=== PATIENT | female | born 1995 | race Caucasian/White ===

== ENCOUNTER 2017-01-18 09:00 | Day surgery (SDC) | payer OTHER ==
[~2017-01-18] VITALS: Ht 166.4 cm; Wt 65.5 kg
[2017-01-18] MEDS: Lactated Ringer's 1,000 ML IV SCH ×2 (03:45→09:00)
--- NOTE | 2017-01-18 06:43 | PCM.HPANE ---
Patient Data Surgeon Admitting Provider: Attending Provider:Yeimy Nunez MD Primary Care Physician:Josemanuel Other Provider:Valentina Escobar Anesthesia Reason for Visit Hymen Abnormal Ht/WT & BMI Height (Feet): 5 Height (Inches): 4 Body Mass Index 0.00 Allergies Coded Allergies: No Known Allergies (Unverified , 01/15/17) Past Anesthesia History Anesthesia History: Denies:: Fam Anesthesia Reaction, Fam Malignant Hypertherm Diabetes History Hx Diabetes?: No MRSA MRSA: No Medications No Active Prescriptions or Reported Meds History History of ENT Problems?: Yes Other HEENT Pertinent History: S/P WISDOM TEETH EXTRACTIONS Hx of Heart Problems?: No Cardiovascular History: Denies:: Heart Murmur Hypertension Valvular Heart Disease Hx of Respiratory Problem?: No Respiratory History: Denies:: Use of C-PAP Machine Hx Neurologic Problems?: No Hx of GI Problems?: No Hx of Problems?: No Female Hx: Denies:: Currently Skin History: Denies:: History Skin Disorders? Pressure Ulcers Hx Musculoskeletal Problems?: No Hx of Psycho/Social Problems?: No Hx Surgeries?: No Hx Any Other Health Problems?: No Other History: Denies:: Cancer Endocrine Disease Hospitalization Thyroid Disease History Blood Transfusions: Positive for:: Accept Blood Products? Denies:: Blood Transfusions Hx Diabetes: No Have You Smoked inLast 12 mo: No Stop/Bang S-Snoring: Do You Snore Loudly: No T-Tired: feel tired, fatigued: No O-Obsered: Observed not breath: No P-Blood Pressure: treated: No B- Body Mass Index > 35 kg/m2: No A- Age over 50: No N- Neck Large Circumference: No G- Gender Male: No RALF Total Score: 0 RALF Risk Assessment: Low Risk, <3 Yes Risk Assessment Category Category 1A: Patient has history of documented sleep apnea, and HAS NOT received any narcotic, sedative or anesthesia administration during this stay. Category 1B: Patient has history of documented sleep apnea, and HAS received any narcotic , sedative or anesthesia administration during this stay Category 2: Patient has SUSPECTED Obstructive Sleep Apnea, and HAS received any narcotic , sedative or anesthesia administration during this stay. Category 3: Patient has SUSPECTED Obstructive Sleep Apnea and HAS NOT received narcotic, sedative or anesthesia administration during this stay. Category 4: Outpatient in Procedural Areas with known sleep apnea or who screen positive for High Risk via the STOP/BANG questionnaire. Exam Exam General Appearance: Alert, Oriented X3, Cooperative, No Acute Distress HEENT/AIRWAY: MP 2 Lungs: Clear to Auscultation, Normal Air Movement Heart: Exam Unremarkable, Regular Rate/Rhythm, No Murmurs/Rubs/Gallops Plan Impression Patient chart reviewed, patient interviewed and anesthestic plan with risks, benefits, and alternatives discussed, and informed consent obtained. ASA Physical Status: ASA1 Normal Healthy Anesthetic Plan: GA Bene/Risks/Altern/Consents: Yes HP Complete Prior to Induction: Yes Leonel Salamanca MD Jan 18, 2017 06:43
[2017-01-18] MEDS ORDERED: fentaNYL-PF 50 mCg/mL 2 mL Inj ONE (09:01)
[2017-01-18] MEDS ORDERED: Propofol 10,000 mCg/mL 20 mL Inj ONE (09:01)
[2017-01-18] MEDS ORDERED: Dexamethasone 4 mg/mL Inj ONE (09:01)
[2017-01-18] MEDS ORDERED: Ondansetron 2 mg/mL 2 mL Inj ONE (09:01)
[2017-01-18 09:23] VITALS: BP 127/63; PULSE 107; RESP 18; O2SAT 100
[2017-01-18] MEDS ORDERED: Labetalol 5 mg/mL 4 mL Inj IV PRN (14:05)
[2017-01-18] MEDS ORDERED: Dexamethasone 4 mg/mL Inj IVPUSH PRN (14:05)
[2017-01-18] MEDS ORDERED: Phenylephrine 10,000 mCg/mL Inj IVPUSH PRN (14:05)
[2017-01-18] MEDS ORDERED: fentaNYL-PF 50 mCg/mL 2 mL Inj IVPUSH PRN (14:05)
[2017-01-18] MEDS ORDERED: HYDROmorphone 1 mg/mL Inj IVPUSH PRN (14:05)
[2017-01-18] MEDS ORDERED: Ondansetron 2 mg/mL 2 mL Inj IVPUSH PRN ×2 (14:05→14:40)
[2017-01-18] MEDS ORDERED: Lactated Ringer's 1,000 ML IV SCH (14:05)
[2017-01-18] MEDS ORDERED: EPHEDrine Sulfate 50 mg/mL Inj IVPUSH PRN (14:05)
[2017-01-18] MEDS ORDERED: Atropine 0.4 mg/mL Inj IVPUSH PRN (14:05)
[2017-01-18] MEDS ORDERED: MetoCLOpramide 5 mg/mL 2 mL Inj IVPUSH PRN ×2 (14:05→14:40)
[2017-01-18] MEDS ORDERED: Lactated Ringer's 500 ML IV PRN (14:05)
[2017-01-18] MEDS ORDERED: Lidocaine 1%-Epi 1:100,000 20 mL Inj INJ ONE (14:21)
[2017-01-18 14:40] VITALS: BP 104/63; PULSE 84; RESP 16; O2SAT 100
[2017-01-18] MEDS ORDERED: diphenhydrAMINE 25 mg Capsule PO PRN (14:40)
[2017-01-18] MEDS ORDERED: oxyCODONE-Acetamin 5-325 mg Tablet PO PRN (14:40)
[2017-01-18 14:45] VITALS: BP 103/63; PULSE 83; RESP 17; O2SAT 100
--- NOTE | 2017-01-18 14:45 | PCM.DIGYN ---
Surgical Discharge Instruction Dates of Hospitalization Date of Hospital Admission Providers Admitting Physician: Primary Care Physician: Josemanuel Attending Physician: Yeimy Nunez MD Diagnosis at Time of Discharge Diagnosis at time of discharge Imperforate hymen Problems: Diet Discharge Diet: No restrictions Activity Discharge Activity-General: Try not to overdue, Activity as pain allows, No driving while taking narcotic Dressing and Incisional Care Hygiene: May shower, NO bathtub, hot tub or whirlpool Additional Instructions Discharge Instructions Please call with any signs or symptoms of infection, severe pain, temperature greater than 100.5 degrees or malodorous vaginal discharge Follow Up Plan Mid-level Provider (F9): Yeimy Nunez MD Follow-up appointment: Weeks (2) Call your provider for: Fever, Chills, Shortness of breath, Heavy vaginal bleeding, Increasing pain Yeimy Nunez MD Jan 18, 2017 14:45
[2017-01-18] MEDS ORDERED: IBUP800T28 PO (14:47)
[2017-01-18] MEDS ORDERED: OXYC1TAB24 PO (14:47)
--- NOTE | 2017-01-18 14:55 | PCM.ANEP1 ---
Post Anesthesia Phase 1 PACU Phase 1 Assessment Vital Signs Vital Signs Date Time Temp Pulse Resp B/P Pulse Ox O2 Delivery O2 Flow Rate FiO2 01/18/17 14:45 83 17 103/63 100 Room Air 01/18/17 14:40 36.2 84 16 104/63 100 Room Air 01/18/17 09:23 35.6 107 18 127/63 100 Room Air Anesthetic Administered: GA Level of Alertness: Awake, talking OGLESBY's with Equal Strength: Yes Pain: No Nausea or Vomiting: No Oxygen Delivery: Simple Mask Lungs: Clear to Auscultation, Normal Air Movement Leonel Salamanca MD Jan 18, 2017 14:55
--- NOTE | 2017-01-18 14:55 | PCM.ANEP2 ---
Post Anesthesia Evaluation ASA/CMS Post Anesthesia VS in Patient's Normal Range?: Yes Resp Stable; Airway Patent?: Yes CV Function & Hydration Stable: Yes Mental Status Recovered?: Yes Pain control Satisfactory?: Yes N/V Control Satisfactory?: Yes Leonel Salamanca MD Jan 18, 2017 14:55
[2017-01-18 15:12] VITALS: BP 106/63; PULSE 70; RESP 16; O2SAT 100
[2017-01-18 15:23] VITALS: BP 114/64; PULSE 91; RESP 16; O2SAT 100
--- NOTE | 2017-01-19 06:22 | OP ---
[address] [address] OPERATIVE REPORT PATIENT: ROLANDO ARANDA : 1995 MR#: [id number] ADMIT: 01/18/2017 JOB ID: [id number] DATE OF SURGERY: 01/18/2017 PREOPERATIVE DIAGNOSIS(ES): Imperforate hymen. POSTOPERATIVE DIAGNOSIS(ES): Imperforate hymen. PROCEDURE PERFORMED: Hymenectomy. SURGEON: Yeimy Nunez MD. FIRE CONTROLMAN: Adelaida Escobar MD who is necessary for safe completion of the case and surgical expertise. ANESTHESIA: LMA. ESTIMATED BLOOD LOSS: 10 cc. FLUID REPLACEMENT: 750 cc of crystalloid. URINE OUTPUT: 400 cc of clear yellow urine catheterized at the start of the procedure. COMPLICATIONS: None apparent. INDICATIONS: This is a 21-year-old G0 female who presents to our clinic complaining of imperforate hymen and inability to insert an tampon. On examination, she did have what appeared to be an imperforate hymen. After discussing with her, risks, benefits and alternatives, she elected to proceed with a hymenectomy. She presented to the operating room on January 18 for this purpose. DESCRIPTION OF PROCEDURE: The patient is brought to the operating room. She is placed in dorsal lithotomy position, prepped and draped in the usual sterile fashion. A [place] catheter was then inserted with return of a large amount of clear yellow urine. Next, a cruciate incision was then made after injection with local with epinephrine into the imperforate hymen, revealing a normal vaginal canal. The cruciate incision was then trimmed and the vaginal canal was irrigated and cleaned. The hymenal ring was then reapproximated with interrupted sutures around the introitus. At the completion of the procedure, two fingers were able to be inserted comfortably within the vagina. She tolerated the procedure well and recovered in PACU. Also needle and instrument counts were correct.
== END 2017-01-18 23:59 | disposition home or self-care (01) ==
LOC: SAS 09:00
PROVIDERS: ATTEND Obstetrics & Gynecology
DX: Q52.9 Congenital malformation of female genitalia, unspecified (principal)
CPT/HCPCS: 56700; J1100; J1885; J2250; J2405; J3010; J7120